=== PATIENT | female | born 1970 | race Caucasian/White ===

== ENCOUNTER → 2021-02-21 10:37 | Outpatient (BNVA) | payer OTHER, SELFPAY | PROVIDERS: PCP Family Medicine; Visit Provider Family Medicine | DX: I10 Essential (primary) hypertension (principal); E53.8 Deficiency of other specified B group vitamins; F17.219 Nicotine dependence, cigarettes, with unspecified nicotine-induced disorders | CPT/HCPCS: 80053; 80061; 82043; 82607; 85025 ==

== ENCOUNTER → 2021-03-05 12:35 | Outpatient (BNVA) | payer OTHER, SELFPAY | PROVIDERS: PCP Family Medicine; Visit Provider Nurse Practitioner | DX: M79.621 Pain in right upper arm (principal); W19.XXXA Unspecified fall, initial encounter | CPT/HCPCS: 73060 ==

== ENCOUNTER 2021-05-22 22:25 | Inpatient (IN) | payer SELFPAY ==
[2021-05-22 22:31] VITALS: BP 170/96; PULSE 88; RESP 16; TEMP 36.7; O2SAT 98
--- NOTE | 2021-05-22 22:39 | ED_ITS ---
HPI - Psych General: Chief Complaint: Psychiatric Symptoms Stated Complaint: MHE Time Seen by Provider: 05/22/21 22:31 Source: patient and police Mode of arrival: EMS Limitations: no limitations History of Present Illness: HPI Narrative: 42-year-old female states she has been having increasing depression over the last year. States is been causing her to drink more frequently and she is starting to have suicidal thoughts. States she is drinking heavily tonight police were called and she made statements about wanting to kill herself. She told me that she also has had increasing suicidal thoughts and needs help. She denies any worsening improving factors denies any attempted overdose. Associated symptoms: Reports depression and suicidal ideation Review of Systems Const: Denies: fever(s), chills, body aches or change in appetite Eyes: Denies: blurry vision or eye discomfort ENMT: Denies: throat pain or dental pain Card: Denies: chest pain Resp: Denies: dyspnea GI: Denies: abdominal pain, nausea, vomiting or diarrhea : Denies: dysuria Musc: Denies: neck pain or back pain Skin/Breast: Denies: rash Neuro: Denies: headache(s) Psych: Reports: depression and suicidal ideation Oscar/Lymph: Denies: easy bruising All/Imm: Denies: urticaria PFSH ED PFSH: Medical History Anemia Benign essential HTN Depression May-Thurner syndrome Affects her left leg Vitamin B12 deficiency Secondary to her gastric bypass Surgical History History of appendectomy History of History of gastric bypass Done in 2014 Social History Smoking and tobacco status: current every day smoker Alcohol intake: current Physical Exam Const: COMMON NORMALS: no acute distress and patient oriented x3 GENERAL APPEARANCE: disheveled HENMT: COMMON NORMALS: normocephalic and atraumatic HEAD & SCALP: normocephalic and atraumatic Eye: COMMON NORMALS: Equal, round and reactive pupils present and EOMs intact bilaterally PUPIL: Yes Equal, round and reactive pupils present Neck/C-Spine: COMMON NORMALS: full ROM and supple Chest: COMMONS NORMALS: normal inspection of the chest and normal palpation of entire chest wall Resp: COMMON NORMALS: normal respiratory effort, No retractions, No use of accessory muscles and clear to auscultation bilaterally AUSCULTATION: clear to auscultation bilaterally Cardio: COMMON NORMALS: regular rate, regular rhythm and No murmurs present (Cardio) RATE: regular rate RHYTHM: regular rhythm GI: COMMON NORMALS: Normal to inspection, nondistended, normoactive bowel sounds present, Soft to palpation, non-tender and no masses PALPATION: Yes Soft to palpation Extremity: COMMON NORMALS: normal to inspection and full ROM Neuro: COMMON NORMALS: patient oriented x3, moves all extremities and no focal motor deficits Psych: COMMON NORMALS: mental status grossly normal, Normal thought process present and cooperative THOUGHT PROCESS: Normal thought process present OTHER: Intoxicated and tearful and very depressed Skin: COMMON NORMALS: no rashes or lesions noted and no wounds GENERAL SKIN EXAM: no rashes or lesions noted Course Vital Signs: Vital signs: Vital Signs Temperature 98.1 F 05/22/21 22:31 Pulse Rate 88 05/22/21 22:31 Respiratory Rate 16 05/22/21 22:31 Blood Pressure 170/96 05/22/21 22:31 Pulse Oximetry 98 05/22/21 22:31 MDM - Psych MDM Narrative: Medical decision making narrative: Patient presents with alcohol intoxication along with suicidal ideations. Patient is medically cleared here for cyanide 6-hour hold I spoke to psychiatrist to admit to the psychiatric unit Lab Data: Labs: Lab Results 05/22/21 05/22/21 23:20 23:20 WBC 6.0 10^3/uL 10^3/ uL (4.0-10.0) RBC 4.37 10^6/uL 10^6 /uL (4.1-5.3) Hgb 14.7 g/dL g/dL (11.5-15.3) Hct 41.5 % % (37.0-47.0) MCV 95.0 fl fl (81-99) MCH 33.6 pg pg (28.0-34.0) MCHC 35.4 g/dL g/dL (30.0-36.0) RDW 13.0 % % (12.1-15.1) Plt Count 310 10^3/cmm 10^3 /cmm (130-400) MPV 10.1 fL fL (7.4-10.4) Neut % (Auto) 44.4 % % Lymph % (Auto) 43.0 % % Bethel % (Auto) 8.1 % % Eos % (Auto) 3.3 % % Baso % (Auto) 1.0 % % Neut # (Auto) 2.68 10^3/uL 10^3 /uL (1.8-7.7) Lymph # (Auto) 2.6 10^3/uL 10^3/ uL (0.8-4.8) Bethel # (Auto) 0.5 10^3/uL 10^3/ uL (0.2-0.9) Eos # (Auto) 0.2 10^3/uL 10^3/ uL (0.0-0.8) Baso # (Auto) 0.1 10^3/uL 10^3/ uL (0.0-0.1) Nucleated RBC % (a uto) 0 % % Nucleated RBCs # 0.0 /100WBC /100W BC Sodium 143 mmol/L mmol/L (136-145) Potassium 2.9 mmol/L L mmol /L (3.5-5.1) Chloride 102 mmol/L mmol/L (98-107) Carbon Dioxide 31 mmol/L H mmol/ L (22-29) Anion Gap 12.9 (5-19) BUN 4 mg/dL L mg/dL (6-20) Creatinine 0.7 mg/dL mg/dL (0.5-0.9) GFR Calculation 89.3 mL/min L mL/ min (90-130) Glucose 97 mg/dL mg/dL (65-115) Calculated Osmolal ity 293 mOsm/kg mOsm/ kg (285-295) Calcium 8.7 mg/dL mg/dL (8.5-10.5) Total Bilirubin 0.2 mg/dL mg/dL (0.15-1.2) AST 16 U/L U/L (0-32) ALT 11 U/L U/L (0-33) Alkaline Phosphata se 67 IU/L IU/L (35-105) Total Protein 6.8 g/dL g/dL (6.6-8.7) Albumin 3.5 g/dL g/dL (3.5-5.2) Globulin 3.3 g/dL g/dL (1.3-4.6) Salicylates < 0.3 mg/dL L mg/ dL (3-10) Acetaminophen < 5.0 ug/mL L ug/ mL (10-30) Ethyl Alcohol 220 mg/dL H mg/dL (0-10) Discharge Plan Discharge Patient Disposition: Admitted As Inpatient Clinical Impression: Suicidal ideation, Alcohol intoxication Condition: Stable Coding Level of Care Code ED Collections Professional for [employer] Fwjosefina Exam Comprehensive
[2021-05-22 23:49] LABS: Basophils # 0.1 10^3/uL (0.0-0.1); Eosinophils # 0.2 10^3/uL (0.0-0.8); Eosinophils % 3.3 %; Hematocrit 41.5 % (37.0-47.0); Hemoglobin 14.7 g/dL (11.5-15.3); Lymphocytes # 2.6 10^3/uL (0.8-4.8); Mean Corpuscular HGB Conc 35.4 g/dL (30.0-36.0); Mean Corpuscular Hemoglobin 33.6 pg (28.0-34.0); Mean Platelet Volume 10.1 fL (7.4-10.4); Monocytes # 0.5 10^3/uL (0.2-0.9); Monocytes % 8.1 %; Neutrophils # 2.68 10^3/uL (1.8-7.7); Neutrophils % 44.4 %; Nucleated Red Blood Cells % 0 %; Platelet Count 310 10^3/cmm (130-400); Red Blood Count 4.37 10^6/uL (4.1-5.3)
[2021-05-23 00:04] LABS: Alanine Aminotransferase 11 U/L (0-33); Albumin Level 3.5 g/dL (3.5-5.2); Alcohol Level 220 mg/dL (0-10); Alkaline Phosphatase 67 IU/L (35-105); Anion Gap 12.9 (5-19); Aspartate Amino Transferase 16 U/L (0-32); Blood Urea Nitrogen 4 mg/dL (6-20); Calcium 8.7 mg/dL (8.5-10.5); Carbon Dioxide 31 mmol/L (22-29); Chloride 102 mmol/L (98-107); Globulin 3.3 g/dL (1.3-4.6); Glomerular Filtration Rate 89.3 mL/min (90-130); Glucose 97 mg/dL (65-115); Osmolality Calculated 293 mOsm/kg (285-295); Sodium 143 mmol/L (136-145); Total Bilirubin 0.2 mg/dL (0.15-1.2); Total Protein 6.8 g/dL (6.6-8.7)
[2021-05-23 00:05] LABS: Acetaminophen < 5.0 ug/mL (10-30); Salicylate < 0.3 mg/dL (3-10)
[2021-05-23 00:06] LABS: Potassium 2.9 mmol/L (3.5-5.1)
[2021-05-23] MEDS: potassium chloride ER 20 mEq Tablet 40 MEQ PO (01:22)
[2021-05-23 01:40] LABS: Amphetamines Screen Urine Negative (Negative); Barbiturates Screen Urine Negative (Negative); Benzodiazepines Screen Urine Negative (Negative); Cocaine Screen Urine Negative (Negative); Opiate Screen Urine Negative (Negative); PCP Screen Urine Negative (Negative); THC Screen Urine Negative (Negative)
[2021-05-23 01:49] VITALS: BP 170/96; PULSE 79; RESP 16; TEMP 36.7; O2SAT 79
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
[2021-05-23 06:00] VITALS: BP 145/96; PULSE 83; RESP 18; TEMP 36.8; O2SAT 95
[2021-05-23] MEDS: folic acid 1 mg Tablet PO (08:41)
[2021-05-23] MEDS: multivitamin therapeutic Tablet 1 TAB PO (08:41)
[2021-05-23] MEDS: thiamine 100 mg Tablet PO (08:41)
--- NOTE | 2021-05-23 11:33 | PC.NUTR ---
Nutrition consult completed and appropriate high-protein meal/snack options noted. See full RD assessment for further details.
--- NOTE | 2021-05-23 11:41 | NPU.GN ---
[facility] Unit Group Topic:Alexis General Mood of Group: Patient did not attend therapy group today.
[2021-05-23 14:00] VITALS: BP 119/84; PULSE 89; RESP 17; TEMP 36.6; O2SAT 96
[2021-05-23] MEDS: ARIPiprazole 10 mg Tablet 5 MG PO (14:34)
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
[2021-05-23 20:36] VITALS: BP 170/91; PULSE 62; RESP 18; TEMP 36.8; O2SAT 96
[2021-05-24 06:00] VITALS: BP 154/88; PULSE 77; RESP 16; TEMP 36.7; O2SAT 95
[2021-05-24] MEDS: folic acid 1 mg Tablet PO (09:15)
[2021-05-24] MEDS: duloxetine 30 mg Capsule 90 MG PO (09:15)
[2021-05-24] MEDS: multivitamin therapeutic Tablet 1 TAB PO (09:15)
[2021-05-24] MEDS: metoprolol succinate ER (24 HR) 50 mg Tablet 75 MG PO (09:16)
[2021-05-24] MEDS: amlodipine 10 mg Tablet PO (09:16)
[2021-05-24] MEDS: ARIPiprazole 10 mg Tablet 5 MG PO (09:16)
[2021-05-24] MEDS: thiamine 100 mg Tablet PO (09:16)
[2021-05-24] MEDS: hydroCHLOROthiazide 25 mg Tablet PO (09:16)
--- NOTE | 2021-05-24 12:01 | NPU.GN ---
[facility] Unit Group Topic: Coping Skills Bingo/ Cross word puzzle General Mood of Group: Shauna did attend and participate in group therapy this morning. Shauna was social and stayed to herself, but she smiled alot and seems to be in good spirits today.
--- NOTE | 2021-05-24 12:47 | P.PN_ITS ---
Subjective NPU Subjective: Interval history: Patient presents today reporting that she is little better with the Abilify added. She reports that this is been a really tough time and she appreciates the treatment team and their efforts to help her find ongoing treatment for her addiction and mental health issues. We discussed the fact that Dr. Mata will be here tomorrow and they could begin discussing the possibility for discharge later this week. Mental Status Exam MSE Comments: This is an obese, white female, in hospital scrubs, with limited grooming, and eye contact. No abnormal movements except for psychomotor retardation. Cooperative with exam in mild distress. Speech was decreased rate and volume. Mood described as depressed, but a little better; affect congruent. Thought process, organized. Thought content: patient denied any suicidal or homicidal ideation, there were no delusions reported or noted, patient denied any auditory or visual hallucinations. Attention, concentration, and memory appear intact but were not formally tested. She is alert and oriented times three. Insight and judgment are good. Impulse control is limited. Vitals/I&O/Wt Last Vital Signs Temp 98.1 F 05/24/21 06:00 Pulse 77 05/24/21 06:00 Resp 16 05/24/21 06:00 BP 154/88 05/24/21 06:00 Pulse Ox 95 05/24/21 06:00 Data NPU : 05/22/21 23:20 05/22/21 23:20 A&P Additional A&P Information (1) Suicidal ideation: (2) Alcohol intoxication: (3) Nicotine dependence, cigarettes, with unspecified nicotine-induced disorders: (4) Screening mammogram, encounter for: (5) Vitamin B12 deficiency: (6) Benign essential HTN: (7) Depression: Additional A&P Information This is a 50-year-old, white female, with a long history of mental health, trauma, alcohol addiction, and significant psychosocial stressors, who presents with active alcohol overuse, and significant depression with recent suicidality. RECOMMENDATION AND PLAN: 1. Continue current medication. 2. Encourage individual, group, and milieu therapy. 3. Continue q-15 minute checks for safety. 4. Encourage sober living treatment after discharge, at the highest level of care, to which she is willing to commit. Involuntary Hold Information 96 Hour Hold: 96 Hour Involuntary Admission: Yes 96 Hour Hold Ending Date: 05/26/21 96 Hour Hold Ending Time: 22:31 Attestations NPU Medical Necessity Statement*: Inpatient hospitalization is medically necessary and the clinically appropriate intervention, at this time. We will monitor medications and make changes as indicated. Likely length of stay is 2-4 days. Coding Level of Care Code Acute Building Insulation Installer for [employer] Conley
[2021-05-24 14:00] VITALS: BP 140/97; PULSE 70; RESP 18; TEMP 36.1; O2SAT 100
[2021-05-24 19:52] VITALS: BP 130/85; PULSE 65; RESP 18; TEMP 36.9; O2SAT 99
[2021-05-25 06:00] VITALS: BP 145/86; PULSE 60; RESP 20; TEMP 36.7; O2SAT 98
[2021-05-25] MEDS: amlodipine 10 mg Tablet PO (09:28)
[2021-05-25] MEDS: duloxetine 30 mg Capsule 90 MG PO (09:28)
[2021-05-25] MEDS: thiamine 100 mg Tablet PO (09:29)
[2021-05-25] MEDS: ARIPiprazole 10 mg Tablet 5 MG PO (09:29)
[2021-05-25] MEDS: metoprolol succinate ER (24 HR) 50 mg Tablet 75 MG PO (09:29)
[2021-05-25] MEDS: folic acid 1 mg Tablet PO (09:29)
[2021-05-25] MEDS: hydroCHLOROthiazide 25 mg Tablet PO (09:29)
[2021-05-25] MEDS: multivitamin therapeutic Tablet 1 TAB PO (09:29)
--- NOTE | 2021-05-25 12:42 | NPU.GN ---
Group Topic:Coping Kills Checklist General Mood of Group: Shauna attended group and participated. Shauna seemed to be in great sprits today.
[2021-05-25 14:00] VITALS: BP 121/82; PULSE 73; RESP 16; TEMP 36.8; O2SAT 98
--- NOTE | 2021-05-25 18:17 | P.PN_ITS ---
Subjective NPU Subjective: Interval history: The patient says her mood is better and she feels more in control. We talked about adding Abilify to augment her antidepressant and stabilize her mood, which she agreed to. She says that her started a full-time lieutenant governor position today, which means he will have health insurance. This means that she can afford to go to outpatient rehabilita tion treatment. She denies auditory and visual hallucinations. She denies suicidal and homicidal ideation. No medication side effects. Mental Status Exam MSE Comments: The patient made good eye contact and was cooperative and open to the exam. No psychomotor agitation or retardation. Speech was had a regular rate and rhythm without pressure. Alert and oriented to person, place, time, and situation. Attention and concentration were intact to exam Memory was fairly good to exam. Mood is improved without depression and anxiety. Affect is brighter. Thought process: Logical and goal directed. No racing thoughts or flight of ideas. Thought content: Denies auditory and visual hallucinations. There are no delusions noted. No suicidal or homicidal ideation. Has future-oriented goals. Insight and judgment are improved and adequate. Vitals/I&O/Wt Last Vital Signs Temp 98.2 F 05/25/21 14:00 Pulse 73 05/25/21 14:00 Resp 16 05/25/21 14:00 BP 121/82 05/25/21 14:00 Pulse Ox 98 05/25/21 14:00 05/25/21 05/25/21 05/25/21 06:59 14:59 22:59 Intake Total 240 / 240 Balance 240 / 240 Data NPU : 05/22/21 23:20 05/22/21 23:20 A&P Additional A&P Information (1) Suicidal ideation: (2) Alcohol intoxication: (3) Nicotine dependence, cigarettes, with unspecified nicotine-induced disorders: (4) Screening mammogram, encounter for: (5) Vitamin B12 deficiency: (6) Benign essential HTN: (7) Depression: Additional A&P Information This is a 50-year-old, white female, with a long history of mental health, trauma, alcohol addiction, and significant psychosocial stressors, who presents with active alcohol overuse, and significant depression with recent suicidality. RECOMMENDATION AND PLAN: 1. Continue current medication. 2. Encourage individual, group, and milieu therapy. 3. Continue q-15 minute checks for safety. 4. Encourage sober living treatment after discharge, at the highest level of care, to which she is willing to commit. Involuntary Hold Information 96 Hour Hold: 96 Hour Involuntary Admission: Yes 96 Hour Hold Ending Date: 05/26/21 96 Hour Hold Ending Time: 22:31 Attestations NPU Medical Necessity Statement*: Inpatient hospitalization is medically necessary and the clinically appropriate intervention, at this time. We will monitor medications and make changes as indicated. Anticipate discharge tomorrow. Coding Level of Care Code Acute Search Engine Optimization Analyst for [facility] Conley
[2021-05-25 20:03] VITALS: BP 123/86; PULSE 71; RESP 18; TEMP 36.9; O2SAT 97
--- NOTE | 2021-05-26 04:35 | PC.NURSE ---
Evening- Patient calm and cooperative. No complaints voiced. Denies any AVH or SI/HI. Reports feeling well today. Has good interaction noted. CIWA is negative. NIGHT- In bed resting with eyes closed throughout night. No complaints voiced. No distress noted.
[2021-05-26 05:56] VITALS: BP 118/72; PULSE 59; RESP 17; TEMP 36.7; O2SAT 97
[2021-05-26] MEDS: multivitamin therapeutic Tablet 1 TAB PO (09:00)
[2021-05-26] MEDS: ARIPiprazole 10 mg Tablet 5 MG PO (09:00)
[2021-05-26] MEDS: folic acid 1 mg Tablet PO (09:00)
[2021-05-26] MEDS: duloxetine 30 mg Capsule 90 MG PO (09:00)
[2021-05-26] MEDS: metoprolol succinate ER (24 HR) 50 mg Tablet 75 MG PO (09:01)
[2021-05-26] MEDS: hydroCHLOROthiazide 25 mg Tablet PO (09:01)
[2021-05-26] MEDS: thiamine 100 mg Tablet PO (09:01)
[2021-05-26] MEDS: amlodipine 10 mg Tablet PO (09:01)
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
[2021-05-26 11:55] VITALS: BP 118/72; PULSE 59; RESP 17; TEMP 36.7; O2SAT 97
== END 2021-05-26 13:24 | disposition home or self-care (01) | DRG 881 ==
LOC: ER 05-23 00:36 → NP 05-23 01:08
PROVIDERS: Admitting Provider Psychiatry & Neurology Psychiatry; Emergency Provider Emergency Medicine; PCP Family Medicine; Visit Provider Psychiatry & Neurology Child & Adolescent Psychiatry
DX: F32.9 Major depressive disorder, single episode, unspecified (principal); R45.851 Suicidal ideations; D64.9 Anemia, unspecified; I10 Essential (primary) hypertension; E53.8 Deficiency of other specified B group vitamins; Z98.84 Bariatric surgery status; F17.210 Nicotine dependence, cigarettes, uncomplicated; F10.129 Alcohol abuse with intoxication, unspecified; Z81.8 Family history of other mental and behavioral disorders
CPT/HCPCS: 80053; 80306; 80307; 85025; 97150; 97165; 99285

== ENCOUNTER 2023-07-11 07:38 | Outpatient (CLI) | payer BC, SELFPAY ==
--- NOTE | 2023-07-11 07:56 | MM_ITS ---
WS: [id number] Bilateral screening 3D tomosynthesis digital mammogram, 07/11/2023 Clinical Data: SCREENING Comparison: None. Findings: The breast parenchymal pattern shows fat replacement. No spiculated masses or clustered calcification s are seen. There are no secondary signs of carcinoma. Impression: 1. Negative bilateral mammogram with no prior exam for review. 2. Recommend annual screening mammograms. MM/[place] [id number] BIRADS: 1-Negative FOLLOW UP: 1 Year Follow-up The CAD formula checker was used.
== END 2023-07-11 07:39 | disposition home or self-care (01) ==
LOC: RAD 07:38
PROVIDERS: PCP Nurse Practitioner Family; Visit Provider Nurse Practitioner Family
DX: Z12.31 Encounter for screening mammogram for malignant neoplasm of breast (principal)
CPT/HCPCS: 77063; 77067